=== PATIENT | female | born 1985 | race Hispanic/Latino ===

== ENCOUNTER 2017-04-15 19:39 | Inpatient (IN) | payer SELFPAY ==
[~2017-04-15] VITALS: Ht 152.4 cm; Wt 117.9 kg
[2017-04-15] MEDS: SODIUM CHLORIDE 0.9% 1000ML 1,000 ML IV SCH (03:45)
[~2017-04-15 19:39] MED LIST: DEXAMETHASONE SOD PHOS 10 MG/1 ML VIAL INJ ONE
[2017-04-15] MEDS ORDERED: ALBUTEROL/IPRATROPIUM 3 ML NEB NEB ONE (20:00)
--- NOTE | 2017-04-15 20:56 | Diagnostic Imaging Report ---
EXAMINATION: CHEST SINGLE (PORTABLE) INDICATION: Cough COMPARISON: None FINDINGS: TUBES and LINES: None. LUNGS: Lungs are well inflated. Perihilar peribronchial hazy opacity with more focal opacity in the left lung worrisome for pneumonia. PLEURA: No pleural effusion or pneumothorax. HEART AND MEDIASTINUM: The cardiomediastinal silhouette is unremarkable. BONES AND SOFT TISSUES: No acute osseous lesion. Soft tissues are unremarkable. UPPER ABDOMEN: No free air under the diaphragm. IMPRESSION: Findings worrisome for left lung pneumonia. Follow-up imaging is indicated to document clearing. Signed by: Dr. Genaro Montoya M.D. on 04/15/2017 8:52 PM
[2017-04-15] MEDS ORDERED: CEFTRIAXONE SOD 1 GM VIAL IV SCH (21:45)
[2017-04-15] MEDS ORDERED: DEXAMETHASONE SOD PHOS 10 MG/1 ML VIAL ONE (22:09)
[2017-04-15] MEDS ORDERED: DIPHENHYDRAMINE HCL INJ 1 ML ONE (22:19)
[2017-04-15 22:24] LABS: BASOPHILS # (AUTO) 0.1 (0.0-0.1); BASOPHILS % 0.4 % (0.0-1.0); EOSINOPHILS # (AUTO) 0.1 (0.0-0.4); EOSINOPHILS % 0.7 % (0.0-6.0); HEMATOCRIT 37.5 % (34.2-44.1); HEMOGLOBIN 12.9 g/dL (12.0-16.0); LYMPHOCYTES # (AUTO) 2.9 (1.0-3.2); LYMPHOCYTES % 24.1 % (18.0-39.1); MEAN CORPUSCULAR HGB CONC 34.4 g/dL (31-35); MEAN CORPUSCULAR VOLUME 87.2 fL (81-99); MONOCYTES # (AUTO) 0.9 (0.2-0.8); MONOCYTES % 7.6 % (4.4-11.3); NEUTROPHILS % 66.9 % (38.7-80.0); PLATELET COUNT 283 x10e3/uL (140-360); RED CELL DISTRIBUTION WIDTH 13.2 % (11.7-14.4)
[2017-04-15 22:40] LABS: ALANINE AMINOTRANSFERASE 19 IU/L (0-55); ALBUMIN 3.5 g/dL (3.5-5.0); ALBUMIN/GLOBULIN RATIO 0.9 (0.8-2.0); ALKALINE PHOSPHATASE 54 IU/L (40-150); ANION GAP 11.7 mmol/L (8-16); BLOOD UREA NITROGEN 10 mg/dL (7-26); BUN/CREATININE RATIO 13 (6-25); CALCIUM 8.7 mg/dL (8.4-10.2); CARBON DIOXIDE 28 mmol/L (22-29); CHLORIDE 107 mmol/L (98-107); CREATININE, SERUM 0.78 mg/dL (0.57-1.11); EST GLOMERULAR FILTRATION RATE > 60 ML/MIN (60-); GLUCOSE 91 mg/dL (74-118); POTASSIUM 3.7 mmol/L (3.5-5.1); SODIUM 143 mmol/L (136-145)
[2017-04-15 22:47] LABS: HCG,QUANTITATIVE < 1.20 mIU/mL (0-10)
[2017-04-16] VITALS (8 sets, daily range): BP systolic 110–145; BP diastolic 67–99
[2017-04-16] MEDS ORDERED: SODIUM CHLORIDE FLUSH 10 ML SYR INJ PRN (02:30)
[2017-04-16] MEDS: AZITHROMYCIN 500MG/SOD CHL 0.9% 250ML BAG IV SCH (03:45)
[2017-04-16] MEDS: SODIUM CHLORIDE 0.9% 1000ML 1,000 ML IV SCH ×2 (07:45→16:23)
[2017-04-16] MEDS ORDERED: ACETAMINOPHEN 325 MG TAB PO PRN ×2 (08:00→15:30)
[2017-04-16] MEDS: CEFTRIAXONE SOD 1 GM VIAL IV SCH (09:00)
[2017-04-16] MEDS: ACETAMINOPHEN 325 MG TAB PO PRN ×2 (09:30→15:40)
[2017-04-16] MEDS: ALBUTEROL SULF 0.083% NEB SOLN 3 ML NEB NEB SCH ×2 (13:00→20:10)
[2017-04-16] MEDS ORDERED: ONDANSETRON HCL INJ 2 MG/ML VIAL IV PRN (15:30)
--- NOTE | 2017-04-16 16:02 | History and Physical ---
CHIEF COMPLAINT: Shortness of breath, wheezing and cough. HPI: Ms. Quijano is a 31-year-old female who reported that she was having constant shortness of breath and wheezing going on for the last 2 days. She went to [place] and received a shot and antibiotics. However, her shortness of breath got worse, so she decided to come here. In the emergency room, a chest x-ray was done which showed developing pneumonia. I reviewed the film, which is showing possibility of right middle lobe infiltrate. She is awake and alert, following commands. She is denying any complaint of chest pain, nausea or vomiting. REVIEW OF SYSTEMS: Negative, except as in HPI. PAST MEDICAL HISTORY: None. PAST SURGICAL HISTORY: None. FAMILY AND SOCIAL HISTORY: She lives with her 3 children. No sick contacts at home. 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 PHYSICAL EXAMINATION VITAL SIGNS: Temperature 97.2, pulse 74, blood pressure 115/67. SKIN: Warm and dry, no rash. HEENT: Head is atraumatic and normocephalic. Pupils are reactive. NECK: Supple. No JVD. CHEST: Wheezing bilaterally. HEART: S1 and S2 audible. ABDOMEN: Soft, nontender and nondistended. EXTREMITIES: No clubbing, cyanosis or edema. NEURO: Awake, alert. No focal neurological deficit. LABS: White count 11,000, hemoglobin 12.9, platelets 283. Chemistry: Sodium 143, potassium 3.7, chloride 107. Chest x-ray: I have reviewed the images. Possibility of right middle lobe infiltrate. ASSESSMENT/PLAN: Ms. Quijano is a 31-year-old female with possible pneumonia, possible viral infection, possibility of flu as well. PLAN 1. I will check influenza antigen. 2. Continue IV Rocephin and azithromycin as ordered. 3. Nebulizer treatment. 4. I will start the patient on 20 mg IV q.8 h. Solu-Medrol. 5. Oxygen as needed. Job#: [id number]
[2017-04-16] MEDS: ENOXAPARIN SOD INJ 40 MG/0.4 ML SYR SC SCH (16:23)
[2017-04-16] MEDS: OSELTAMIVIR PHOSPHATE 75 MG CAP PO SCH (16:23)
[2017-04-16] MEDS: BUDESONIDE 0.5MG/2 ML NEB INH SCH (20:10)
[2017-04-16] MEDS: METHYLPREDNISOLONE SOD SUCC 40 MG/ML VIAL IV SCH (22:24)
[2017-04-17] VITALS: BP 120/77
[2017-04-17] MEDS: AZITHROMYCIN 500MG/SOD CHL 0.9% 250ML BAG IV SCH (02:19)
[2017-04-17 04:00] VITALS: BP 13/78
[2017-04-17] MEDS: METHYLPREDNISOLONE SOD SUCC 40 MG/ML VIAL IV SCH ×2 (05:52→21:58)
[2017-04-17] MEDS: SODIUM CHLORIDE 0.9% 1000ML 1,000 ML IV SCH ×2 (05:52→13:45)
[2017-04-17] MEDS: ALBUTEROL SULF 0.083% NEB SOLN 3 ML NEB NEB SCH ×3 (07:05→18:50)
[2017-04-17] MEDS: BUDESONIDE 0.5MG/2 ML NEB INH SCH ×2 (07:05→18:50)
[2017-04-17 08:19] VITALS: BP 139/84
[2017-04-17] MEDS: CEFTRIAXONE SOD 1 GM VIAL IV SCH (09:00)
[2017-04-17] MEDS: OSELTAMIVIR PHOSPHATE 75 MG CAP PO SCH ×2 (09:00→17:00)
[2017-04-17 09:45] VITALS: BP 139/84
[2017-04-17 11:00] VITALS: BP 151/88
[2017-04-17] MEDS: ENOXAPARIN SOD INJ 40 MG/0.4 ML SYR SC SCH (17:00)
[2017-04-17 21:07] VITALS: BP 142/82
[2017-04-18] MEDS: SODIUM CHLORIDE 0.9% 1000ML 1,000 ML IV SCH ×2 (00:06→11:30)
[2017-04-18 00:12] VITALS: BP 116/75
[2017-04-18] MEDS: ALBUTEROL SULF 0.083% NEB SOLN 3 ML NEB NEB SCH ×4 (02:15→20:10)
[2017-04-18] MEDS: AZITHROMYCIN 500MG/SOD CHL 0.9% 250ML BAG IV SCH (02:30)
[2017-04-18 05:38] VITALS: BP 92/50
[2017-04-18 06:34] LABS: BASOPHILS % 0.2 % (0.0-1.0); EOSINOPHILS % 0.1 % (0.0-6.0); HEMATOCRIT 33.9 % (34.2-44.1); HEMOGLOBIN 11.7 g/dL (12.0-16.0); LYMPHOCYTES # (AUTO) 2.2 (1.0-3.2); LYMPHOCYTES % 13.7 % (18.0-39.1); MEAN CORPUSCULAR HEMOGLOBIN 29.9 pg (28-32); MEAN CORPUSCULAR HGB CONC 34.5 g/dL (31-35); MEAN CORPUSCULAR VOLUME 86.7 fL (81-99); MONOCYTES # (AUTO) 0.4 (0.2-0.8); MONOCYTES % 2.4 % (4.4-11.3); NEUTROPHILS # (AUTO) 13.3 (2.1-6.9); NEUTROPHILS % 82.6 % (38.7-80.0); PLATELET COUNT 303 x10e3/uL (140-360); RED BLOOD COUNT 3.91 x10e6/uL (3.6-5.1)
[2017-04-18] MEDS: BUDESONIDE 0.5MG/2 ML NEB INH SCH ×2 (06:36→20:10)
[2017-04-18 07:12] LABS: ANION GAP 10.2 mmol/L (8-16); BLOOD UREA NITROGEN 12 mg/dL (7-26); BUN/CREATININE RATIO 16 (6-25); CALCIUM 8.9 mg/dL (8.4-10.2); CARBON DIOXIDE 25 mmol/L (22-29); CHLORIDE 106 mmol/L (98-107); CREATININE, SERUM 0.73 mg/dL (0.57-1.11); EST GLOMERULAR FILTRATION RATE > 60 ML/MIN (60-); GLUCOSE 183 mg/dL (74-118); POTASSIUM 4.2 mmol/L (3.5-5.1); SODIUM 137 mmol/L (136-145)
[2017-04-18 08:00] VITALS: BP_SYST 123; BP_SYST 97; BP_DIAS 60; BP_DIAS 64
[2017-04-18] MEDS: OSELTAMIVIR PHOSPHATE 75 MG CAP PO SCH ×2 (08:21→16:19)
[2017-04-18] MEDS: CEFTRIAXONE SOD 1 GM VIAL IV SCH (08:21)
[2017-04-18] MEDS: METHYLPREDNISOLONE SOD SUCC 40 MG/ML VIAL IV SCH (08:21)
--- NOTE | 2017-04-18 11:32 | Diagnostic Imaging Report ---
PROCEDURE: A single AP view of the chest. COMPARISON: 04/15/17 INDICATIONS: PNEUMONIA FINDINGS: Lines/tubes: None. Lungs: Limited by body habitus and shallow inspiration. Central peribronchovascular thickening/cuffing. Increased left lower lung field hazy opacification. Pleura: There is no significant pleural effusion or pneumothorax. Heart and mediastinum: Enlarged cardiac silhouette on this AP view. Bones: No acute bony abnormality. IMPRESSION: Limited as above. Central peribronchovascular thickening/cuffing. Increased left lower lung field hazy opacification, which could be due to overlying soft tissue attenuation. Underlying atelectasis/pneumonia cannot be excluded. Dictated by: Savage Gibbons M.D. on 04/18/2017 at 11:41 Electronically approved by: Savage Gibbons M.D. on 04/18/2017 at 11:41
[2017-04-18 12:00] VITALS: BP 135/82
[2017-04-18 16:00] VITALS: BP 120/67
[2017-04-18] MEDS: ENOXAPARIN SOD INJ 40 MG/0.4 ML SYR SC SCH (16:19)
[2017-04-18] MEDS: PREDNISONE 10 MG TAB PO SCH (16:19)
[2017-04-18 20:00] VITALS: BP 124/75
[2017-04-19] VITALS (8 sets, daily range): BP systolic 105–133; BP diastolic 63–74
[2017-04-19] MEDS: ALBUTEROL SULF 0.083% NEB SOLN 3 ML NEB NEB SCH ×4 (01:00→19:30)
[2017-04-19] MEDS: AZITHROMYCIN 500MG/SOD CHL 0.9% 250ML BAG IV SCH (02:38)
[2017-04-19] MEDS: BUDESONIDE 0.5MG/2 ML NEB INH SCH ×2 (07:45→19:30)
[2017-04-19] MEDS: OSELTAMIVIR PHOSPHATE 75 MG CAP PO SCH ×2 (08:05→16:04)
[2017-04-19] MEDS: PREDNISONE 10 MG TAB PO SCH ×2 (08:05→16:04)
[2017-04-19] MEDS: CEFTRIAXONE SOD 1 GM VIAL IV SCH (08:05)
[2017-04-19] MEDS: ENOXAPARIN SOD INJ 40 MG/0.4 ML SYR SC SCH (16:04)
--- NOTE | 2017-04-19 17:59 | Diagnostic Imaging Report ---
EXAMINATION: CHEST 2 VIEWS INDICATION: \S\pneumonia COMPARISON: Chest x-ray 04/08/2017. 04/15/2017. FINDINGS: PA and lateral views TUBES and LINES: None. LUNGS: Lungs are well inflated. Bilateral peribronchial cuffing. There is no evidence of pneumonia or pulmonary edema. PLEURA: No pleural effusion or pneumothorax. HEART AND MEDIASTINUM: The cardiomediastinal silhouette is unremarkable. BONES AND SOFT TISSUES: No acute osseous lesion. Soft tissues are unremarkable. UPPER ABDOMEN: No free air under the diaphragm. IMPRESSION: Bilateral peribronchial cuffing, which could represent viral etiology or reactive airway disease. Signed by: Dr. Pritesh Michel M.D. on 04/19/2017 5:56 PM
[2017-04-20] VITALS (8 sets, daily range): BP systolic 98–123; BP diastolic 55–85
[2017-04-20] MEDS: ALBUTEROL SULF 0.083% NEB SOLN 3 ML NEB NEB SCH ×4 (00:45→19:13)
[2017-04-20] MEDS: AZITHROMYCIN 500MG/SOD CHL 0.9% 250ML BAG IV SCH (02:39)
[2017-04-20] MEDS: BUDESONIDE 0.5MG/2 ML NEB INH SCH ×2 (07:15→19:13)
[2017-04-20 07:29] LABS: BASOPHILS # (AUTO) 0.1 (0.0-0.1); BASOPHILS % 0.5 % (0.0-1.0); EOSINOPHILS # (AUTO) 0.1 (0.0-0.4); EOSINOPHILS % 0.7 % (0.0-6.0); HEMATOCRIT 35.2 % (34.2-44.1); HEMOGLOBIN 12.1 g/dL (12.0-16.0); LYMPHOCYTES # (AUTO) 6.3 (1.0-3.2); LYMPHOCYTES % 33.1 % (18.0-39.1); MEAN CORPUSCULAR HGB CONC 34.4 g/dL (31-35); MEAN CORPUSCULAR VOLUME 87.1 fL (81-99); MONOCYTES # (AUTO) 0.9 (0.2-0.8); MONOCYTES % 4.8 % (4.4-11.3); NEUTROPHILS # (AUTO) 11.1 (2.1-6.9); PLATELET COUNT 327 x10e3/uL (140-360); RED BLOOD COUNT 4.04 x10e6/uL (3.6-5.1); RED CELL DISTRIBUTION WIDTH 13.2 % (11.7-14.4)
[2017-04-20 07:47] LABS: ANION GAP 8.9 mmol/L (8-16); BLOOD UREA NITROGEN 15 mg/dL (7-26); BUN/CREATININE RATIO 23 (6-25); CALCIUM 8.6 mg/dL (8.4-10.2); CARBON DIOXIDE 28 mmol/L (22-29); CHLORIDE 106 mmol/L (98-107); CREATININE, SERUM 0.65 mg/dL (0.57-1.11); EST GLOMERULAR FILTRATION RATE > 60 ML/MIN (60-); GLUCOSE 88 mg/dL (74-118); POTASSIUM 3.9 mmol/L (3.5-5.1); SODIUM 139 mmol/L (136-145)
[2017-04-20] MEDS: CEFTRIAXONE SOD 1 GM VIAL IV SCH (08:32)
[2017-04-20] MEDS: OSELTAMIVIR PHOSPHATE 75 MG CAP PO SCH ×2 (08:32→16:41)
[2017-04-20 08:47] LABS: LYMPHOCYTES % (MANUAL) 29 % (19-48); MONOCYTES % (MANUAL) 2 % (3.4-9.0); NEUTROPHILS % (MANUAL) 68 % (40-74)
[2017-04-20 08:48] LABS: ANISOCYTOSIS SLIGHT; PLATELET ESTIMATE ADEQUATE; PLATELET MORPHOLOGY COMMENT NORMAL; RBC MORPHOLOGY COMMENT NORMAL
[2017-04-20] MEDS: ENOXAPARIN SOD INJ 40 MG/0.4 ML SYR SC SCH (16:41)
[2017-04-20] MEDS: DOXYCYCLINE HYCLATE TABLET 100 MG TAB PO SCH (20:21)
[2017-04-21 00:10] VITALS: BP 111/72
[2017-04-21] MEDS: ALBUTEROL SULF 0.083% NEB SOLN 3 ML NEB NEB SCH ×2 (03:12→06:55)
[2017-04-21 04:25] VITALS: BP 100/69
[2017-04-21 06:26] LABS: BASOPHILS # (AUTO) 0.1 (0.0-0.1); BASOPHILS % 0.6 % (0.0-1.0); EOSINOPHILS # (AUTO) 0.3 (0.0-0.4); EOSINOPHILS % 1.6 % (0.0-6.0); HEMATOCRIT 35.1 % (34.2-44.1); LYMPHOCYTES # (AUTO) 6.1 (1.0-3.2); LYMPHOCYTES % 35.5 % (18.0-39.1); MEAN CORPUSCULAR HEMOGLOBIN 29.9 pg (28-32); MEAN CORPUSCULAR HGB CONC 34.2 g/dL (31-35); MEAN CORPUSCULAR VOLUME 87.5 fL (81-99); MONOCYTES # (AUTO) 0.9 (0.2-0.8); MONOCYTES % 5.3 % (4.4-11.3); NEUTROPHILS # (AUTO) 9.4 (2.1-6.9); NEUTROPHILS % 54.7 % (38.7-80.0); PLATELET COUNT 322 x10e3/uL (140-360); RED BLOOD COUNT 4.01 x10e6/uL (3.6-5.1); RED CELL DISTRIBUTION WIDTH 13.4 % (11.7-14.4)
[2017-04-21 06:46] LABS: ANION GAP 12.8 mmol/L (8-16); BLOOD UREA NITROGEN 16 mg/dL (7-26); BUN/CREATININE RATIO 25 (6-25); CALCIUM 8.5 mg/dL (8.4-10.2); CARBON DIOXIDE 26 mmol/L (22-29); CHLORIDE 105 mmol/L (98-107); CREATININE, SERUM 0.65 mg/dL (0.57-1.11); EST GLOMERULAR FILTRATION RATE > 60 ML/MIN (60-); GLUCOSE 86 mg/dL (74-118); POTASSIUM 3.8 mmol/L (3.5-5.1); SODIUM 140 mmol/L (136-145)
[2017-04-21] MEDS: BUDESONIDE 0.5MG/2 ML NEB INH SCH (06:56)
[2017-04-21 07:24] LABS: EOSINOPHILS % (MANUAL) 5 % (0-7); LYMPHOCYTES % (MANUAL) 37 % (19-48); MONOCYTES % (MANUAL) 7 % (3.4-9.0); MYELOCYTES % (MANUAL) 1 % (0-0); NEUTROPHILS % (MANUAL) 47 % (40-74)
[2017-04-21 07:25] LABS: ANISOCYTOSIS SLIGHT; PLATELET ESTIMATE ADEQUATE; PLATELET MORPHOLOGY COMMENT FEW LARGE; RBC MORPHOLOGY COMMENT NORMAL
[2017-04-21 08:00] VITALS: BP 103/59
--- NOTE | 2017-04-21 09:06 | Diagnostic Imaging Report ---
PROCEDURE:CT CHEST WITHOUT CONTRAST COMPARISON:[facility], DX, CHEST 2 VIEWS, 04/19/2017, 16:33. INDICATIONS:Pneumonia TECHNIQUE: Routine protocol Volumetric CT chest. No intravenous or enteric contrast. Multiplanar reformatted images. DLP: 586.21 mGy*cm FINDINGS: Lungs: Trace bibasilar dependent mosaic attenuation consistent with expiration phase atelectasis. Otherwise, normal. Airways: Normal expiration phase imaging. No bronchial wall thickening. Pleura: Normal Lymph nodes: Normal Pulmonary arteries: Normal central caliber. Mild prominence of the vasculature peripherally Thoracic aorta and great vessels: Normal Heart and pericardium: Mild cardiomegaly. No pericardial effusion. Subdiaphragmatic organs: Image segments are normal. Soft tissues: Normal Skeleton: Normal CONCLUSION: 1. No evidence of pneumonia or other acute abnormality. 2. Mild cardiomegaly. Mild distal pulmonary artery enlargement which may reflect elevated left atrial pressures. Dictated by: Dangelo Kern M.D. on 04/21/2017 at 9:14 Electronically approved by: Dangelo Kern M.D. on 04/21/2017 at 9:14
[2017-04-21 09:11] VITALS: BP 103/59
[2017-04-21] MEDS: DOXYCYCLINE HYCLATE TABLET 100 MG TAB PO SCH (11:07)
[2017-04-21] MEDS: CEFTRIAXONE SOD 1 GM VIAL IV SCH (11:07)
[2017-04-21] MEDS: OSELTAMIVIR PHOSPHATE 75 MG CAP PO SCH (11:07)
--- NOTE | 2017-04-21 13:51 | Discharge Summary ---
FINAL DIAGNOSES 1. Likely influenza. 2. Leukocytosis. 3. Reactive airways. ADMISSION HISTORY AND HOSPITAL COURSE: Ms. Quijano is a 31-year-old female who presented to the emergency room with shortness of breath and cough and wheezing. She was started on IV steroids, nebulizer, and antibiotics. Patient started feeling better. She had leukocytosis. Chest x-ray did not show any pneumonia. CT chest was done, which showed no evidence of pneumonia or cardiomegaly. Patient will be discharged home to follow up with me in 2 weeks with CBC. She will be discharged on cephalexin. AYDEN QUINTANILLA MD Job#: [id number] [facility]
== END 2017-04-21 12:00 | disposition home or self-care (01) | DRG 153 ==
LOC: ER 19:39 → MED/SURG2 04-16 02:30
PROVIDERS: ADMIT Internal Medicine; ATTEND Internal Medicine
PROC: 5A1D70Z Performance of Urinary Filtration, Intermittent, Less than 6 Hours Per Day (ICD-10-PCS; principal; 2017-04-19)
DX: J11.1 Influenza due to unidentified influenza virus with other respiratory manifestations (principal); J45.909 Unspecified asthma, uncomplicated
CPT/HCPCS: 36415; 71045; 71046; 71250; 80048; 80053; 84702; 85025; 87040; 87070; 87205; 87400; 94640; 99284; J0456; J0696; J1100; J1200; J1650; J2920; J7030

== ENCOUNTER 2022-01-13 08:47 | Emergency (ER) | payer OTHER ==
[~2022-01-13] VITALS: Ht 152.4 cm; Wt 81.6 kg
[2022-01-13] MEDS ORDERED: SODIUM CHLORIDE 0.9% 1000ML 1,000 ML IV STA (09:36)
[2022-01-13] MEDS ORDERED: FAMOTIDINE 20 MG/2 ML VIAL IV ONE ×2 (09:45→10:05)
[2022-01-13] MEDS ORDERED: CEFTRIAXONE 1 GM VIAL IV ONE (09:45)
[2022-01-13] MEDS ORDERED: ONDANSETRON HCL INJ 2MG/ML 2ML 2 MG/ML VIAL IV ONE (09:45)
[2022-01-13] MEDS ORDERED: SODIUM CHLORIDE 0.9% 1000ML 1,000 ML ONE (10:05)
[2022-01-13] MEDS ORDERED: ONDANSETRON HCL INJ 2MG/ML 2ML 2 MG/ML VIAL ONE (10:05)
[2022-01-13] MEDS ORDERED: CEFTRIAXONE 1 GM VIAL ONE (10:05)
[2022-01-13] MEDS ORDERED: OMEPRAZOLE40 MG PO (10:32)
[2022-01-13 11:02] VITALS: BP 132/74
== END 2022-01-13 11:03 | disposition home or self-care (01) ==
LOC: FSED 09:00
DX: R11.2 Nausea with vomiting, unspecified (principal); K29.70 Gastritis, unspecified, without bleeding; R10.11 Right upper quadrant pain; D64.9 Anemia, unspecified; Z98.84 Bariatric surgery status
CPT/HCPCS: 80053; 81003; 81025; 85025; 99284; J0696; J2405; J7030